=== PATIENT | male | born 1970 | race Caucasian/White ===

== ENCOUNTER 2018-04-30 09:47 | Observation (INO) | payer MEDICAID ==
[2018-04-30] MEDS: ASPIRIN 81 MG TAB PO (10:51)
[2018-04-30 10:53] LABS: ADD MAN DIFF? NO
[2018-04-30] MEDS: ONDANSETRON 4 MG INJ IV (10:53)
[2018-04-30] MEDS: morphine 4 MG/ML VIAL IV (10:53)
[2018-04-30 10:55] LABS: BASOPHIL # 0.1 10^3/ul (0.0-0.1); BASOPHILS % 0.6 % (0.0-2.0); EOSINOPHILS # 0.3 10^3/ul (0.0-0.5); EOSINOPHILS % 2.8 % (0.0-7.0); HEMATOCRIT 50.8 % (42.0-52.0); HEMOGLOBIN 17.5 g/dl (14.0-18.0); LYMPHOCYTES # 2.9 10^3/ul (0.8-2.9); LYMPHOCYTES % 32.4 % (15.0-51.0); MEAN CORPUSCULAR HGB CONC 34.4 g/dl (32.0-37.0); MEAN CORPUSCULAR VOLUME 87.1 fl (82.0-101.0); MEAN PLATELET VOLUME 9.4 fl (7.4-10.4); MONOCYTE # 0.6 10^3/ul (0.3-0.9); MONOCYTES % 6.9 % (0.0-11.0); NEUTROPHIL # 5.1 10^3/ul (1.6-7.5); NEUTROPHILS % 57.1 % (39.0-77.0); PLATELET COUNT 387 10^3/UL (140-415); RED BLOOD COUNT 5.83 10^6/ul (4.70-6.10); RED CELL DISTRIBUTION WIDTH 12.8 % (11.5-14.5)
[2018-04-30 10:55] LABS: WHITE BLOOD COUNT 8.9 10^3/ul (4.8-10.8)
[2018-04-30 11:15] LABS: ALANINE AMINOTRANSFERASE 26 IU/L (13-69); ALBUMIN 4.4 g/dl (3.3-4.9); ALBUMIN/GLOBULIN RATIO 1.29; ALKALINE PHOSPHATASE 142 IU/L (42-121); ANION GAP 12 (5-13); ASPARTATE AMINO TRANSFERASE 24 IU/L (15-46); BILIRUBIN,INDIRECT 0.3 mg/dl (0-1.1); BILIRUBIN,TOTAL 0.3 mg/dl (0.2-1.3); BLOOD UREA NITROGEN 11 mg/dl (7-20); CALCIUM 9.9 mg/dl (8.4-10.2); CARBON DIOXIDE 22 mmol/L (21-31); CHLORIDE 107 mmol/L (97-110); CREATININE 0.66 mg/dl (0.61-1.24); Estimated GFR > 60 mL/min (>60); GLUCOSE 135 mg/dl (70-220); LIPASE 124 U/L (23-300); SODIUM 141 mmol/L (135-144); TOTAL PROTEIN 7.8 g/dl (6.1-8.1)
[2018-04-30 11:17] LABS: D-DIMER 229.99 ng/ml (<460)
[2018-04-30 11:27] LABS: B-TYPE NATRIURETIC PEPTIDE < 11 PG/ML (0-125); TROPONIN-I < 0.012 ng/ml (0.000-0.120)
[2018-04-30] MEDS ORDERED: HYDROCODONE/APAP (5/325) TAB PO (12:00)
[2018-04-30] MEDS ORDERED: NACL 0.9% 3 ML SYG IV (12:00)
[2018-04-30 16:41] LABS: D-DIMER < 220.00 ng/ml (<460)
[2018-05-01 09:38] LABS: TROPONIN-I < 0.012 ng/ml (0.000-0.120)
[2018-05-01 12:20] LABS: HEMOGLOBIN A1C 7.1 % (0-5.9)
== END 2018-05-01 13:39 | disposition home or self-care (01) ==
LOC: E/R 09:47 → 6WM 12:28
DX: R07.9 Chest pain, unspecified (principal); E11.9 Type 2 diabetes mellitus without complications; I10 Essential (primary) hypertension; I25.10 Atherosclerotic heart disease of native coronary artery without angina pectoris; I25.2 Old myocardial infarction; E66.9 Obesity, unspecified; Z68.42 Body mass index [BMI] 45.0-49.9, adult; Z79.82 Long term (current) use of aspirin
CPT/HCPCS: 36415; 71045; 80053; 83036; 83690; 83880; 84484; 85025; 85378; 93005; 93306; 99285-25; G0378

== ENCOUNTER 2018-11-07 08:43 | Emergency (ER) | payer MEDICAID ==
[2018-11-07] MEDS: KETOROLAC 60 MG INJ IM (09:03)
[2018-11-07] MEDS: DEXAMETHASONE 10 MG/ML 1 ML INJ IM (09:03)
[2018-11-07 09:05] LABS: URINE BLOOD (Dip) POC 1+ (NEGATIVE); URINE GLUCOSE (Dip) POC Negative (NEGATIVE); URINE KETONES (Dip) POC Negative (NEGATIVE); URINE LEUKOCYTE EST (Dip) POC Negative (NEGATIVE); URINE NITRITE (Dip) POC Negative (NEGATIVE); URINE TOTAL PROTEIN POC Negative (NEGATIVE)
[2018-11-07 09:05] LABS: URINE PH (Dip) POC 5.5 (5.0-8.5)
== END 2018-11-07 09:52 | disposition home or self-care (01) ==
LOC: FTE 09:52
DX: M54.9 Dorsalgia, unspecified (principal); Z79.82 Long term (current) use of aspirin
CPT/HCPCS: 81003; 96372; 99284-25

== ENCOUNTER 2018-12-13 17:55 | Emergency (ER) | payer MEDICAID ==
[2018-12-13 19:22] LABS: ADD MAN DIFF? NO
[2018-12-13 19:28] LABS: WHITE BLOOD COUNT 10.9 10^3/ul (4.8-10.8)
[2018-12-13 19:28] LABS: BASOPHIL # 0.1 10^3/ul (0.0-0.1); BASOPHILS % 0.5 % (0.0-2.0); EOSINOPHILS # 0.2 10^3/ul (0.0-0.5); EOSINOPHILS % 2.1 % (0.0-7.0); HEMATOCRIT 48.2 % (42.0-52.0); HEMOGLOBIN 16.6 g/dl (14.0-18.0); LYMPHOCYTES # 3.3 10^3/ul (0.8-2.9); LYMPHOCYTES % 30.2 % (15.0-51.0); MEAN CORPUSCULAR HEMOGLOBIN 30.9 pg (29.0-33.0); MEAN CORPUSCULAR HGB CONC 34.4 g/dl (32.0-37.0); MEAN CORPUSCULAR VOLUME 89.6 fl (82.0-101.0); MEAN PLATELET VOLUME 9.1 fl (7.4-10.4); MONOCYTE # 0.9 10^3/ul (0.3-0.9); NEUTROPHIL # 6.4 10^3/ul (1.6-7.5); NEUTROPHILS % 58.9 % (39.0-77.0); PLATELET COUNT 465 10^3/UL (140-415); RED BLOOD COUNT 5.38 10^6/ul (4.70-6.10); RED CELL DISTRIBUTION WIDTH 12.8 % (11.5-14.5)
[2018-12-13] MEDS: KETOROLAC 30 MG INJ IV (19:29)
[2018-12-13] MEDS: morphine 4 MG/ML VIAL IV (19:29)
[2018-12-13] MEDS: SOD CHLORIDE 0.9% 1,000 ML IV (19:29)
[2018-12-13] MEDS: ONDANSETRON 4 MG INJ IV (19:30)
[2018-12-13 19:40] LABS: UR CLARITY BLOODY (CLEAR); UR COLOR RED (YELLOW)
[2018-12-13 19:42] LABS: ADD UMIC YES; UR ASCORBIC ACID NEGATIVE (NEGATIVE); UR BACTERIA FEW /HPF (NONE SEEN); UR BILIRUBIN (Dip) NEGATIVE (NEGATIVE); UR BLOOD (Dip) 2+ mg/dL (NEGATIVE); UR GLUCOSE (Dip) NEGATIVE (NEGATIVE); UR KETONES (Dip) NEGATIVE (NEGATIVE); UR LEUKOCYTE ESTERASE (Dip) NEGATIVE Leu/ul (NEGATIVE); UR NITRITE (Dip) NEGATIVE (NEGATIVE); UR RBC > 182 /HPF (0-5); UR SPECIFIC GRAVITY (Dip) 1.021 (1.003-1.030); UR TOTAL PROTEIN (Dip) 2+ mg/dl (NEGATIVE); UR UROBILINOGEN (Dip) NEGATIVE (NEGATIVE); UR WBC > 182 /HPF (0-5)
[2018-12-13 19:46] LABS: ALANINE AMINOTRANSFERASE 35 IU/L (13-69); ALKALINE PHOSPHATASE 111 IU/L (42-121); ANION GAP 8 (5-13); ASPARTATE AMINO TRANSFERASE 29 IU/L (15-46); BILIRUBIN,INDIRECT 0.4 mg/dl (0-1.1); BILIRUBIN,TOTAL 0.4 mg/dl (0.2-1.3); BLOOD UREA NITROGEN 14 mg/dl (7-20); CALCIUM 9.3 mg/dl (8.4-10.2); CARBON DIOXIDE 25 mmol/L (21-31); CHLORIDE 106 mmol/L (97-110); CREATININE 0.79 mg/dl (0.61-1.24); Estimated GFR > 60 mL/min (>60); GLUCOSE 120 mg/dl (70-220); LIPASE 153 U/L (23-300); POTASSIUM 3.7 mmol/L (3.5-5.1); SODIUM 139 mmol/L (135-144)
[2018-12-13 19:47] LABS: ALBUMIN 4.3 g/dl (3.3-4.9); TOTAL PROTEIN 7.6 g/dl (6.1-8.1)
[2018-12-13] MEDS: CIPROFLOXACIN 500 MG TAB PO (20:21)
== END 2018-12-13 20:30 | disposition home or self-care (01) ==
LOC: E/R 17:55
DX: N20.0 Calculus of kidney (principal); E11.9 Type 2 diabetes mellitus without complications; N30.90 Cystitis, unspecified without hematuria; Z79.82 Long term (current) use of aspirin
CPT/HCPCS: 36415; 74176; 80053; 81001; 83690; 85025; 96361; 96374; 96375; 99285-25

== ENCOUNTER 2018-12-19 07:18 | Emergency (ER) | payer MEDICAID ==
[2018-12-19] MEDS: KETOROLAC 30 MG INJ IV (09:51)
[2018-12-19] MEDS: SOD CHLORIDE 0.9% 500 ML IV (09:51)
== END 2018-12-19 11:05 | disposition home or self-care (01) ==
LOC: E/R 07:18
DX: R10.9 Unspecified abdominal pain (principal)
CPT/HCPCS: 76775; 80048; 81001; 85025; 96361; 96374; 99285-25